=== PATIENT | male | born 2005 | race Caucasian/White ===

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

== ENCOUNTER 2024-10-06 13:34 | Emergency (ER) | payer OTHER ==
[2024-10-06 13:40] VITALS: BP 119/64; PULSE 59; RESP 20; TEMP 98.1; BMI 28.1
[2024-10-06] MEDS ORDERED: IBUPROFEN 600 MG TABLET (FP) PO ONE (14:24)
[2024-10-06] MEDS ORDERED: ACETAMINOPHEN 500 MG TABLET (FP) ONE (14:24)
[2024-10-06] MEDS: ACETAMINOPHEN 500 MG TABLET (FP) PO ONE (14:27)
[2024-10-06] MEDS: IBUPROFEN 600 MG TABLET (FP) PO ONE (14:28)
== END 2024-10-06 14:25 | disposition home or self-care (01) ==
LOC: JERFT 13:34
DX: M25.561 Pain in right knee (principal)
CPT/HCPCS: 99283-25